=== PATIENT | female | born 1940 | race Caucasian/White ===

== ENCOUNTER 2022-12-02 17:00 | Emergency (ER) | payer MEDICARE, OTHER, SELFPAY ==
[2022-12-02] MEDS: 0.9% Normal Saline 1,000 ML 500 ML IV (17:00)
--- NOTE | 2022-12-02 17:02 | CT_ITS ---
INDICATION: ABD PAIN EXAMINATION: CT ABDOMEN AND PELVIS WITH CONTRAST - CT Abdomen And Pelvis W/ Contrast Injection TECHNIQUE: Helically acquired images were obtained of the abdomen and pelvis following IV contrast. A radiation dose optimization technique was used for this scan. IV Contrast dosage and agent: Oral contrast: None. COMPARISON: None. FINDINGS: LOWER CHEST: Lung bases are clear. No cardiomegaly or pericardial effusion. LIVER: Homogeneous. No focal mass. GALLBLADDER AND BILIARY TREE: Cholecystectomy.. No intra- or extrahepatic biliary ductal dilation. PANCREAS: No focal cystic or solid mass. SPLEEN: 1 cm splenic cyst, commonly sequela of prior infection or trauma. Normal size without focal cystic or solid mass. ADRENAL GLANDS: No nodules. KIDNEYS AND URETERS: Normal renal size and position. Small bilateral renal hypodensities which are too small to characterize, commonly cysts, no specific imaging follow-up required. No hydronephrosis. PERITONEUM: No ascites or free air. No other fluid collection. BOWEL: Small hiatal hernia. No other acute gastric finding. No small bowel distention. There is mild small bowel mesenteric stranding and minimal wall thickening of the left lower abdomen and upper pelvis. Appendix not seen, no right lower quadrant inflammation to suggest appendicitis. Scattered distal colonic diverticulosis with minimal fat stranding or volume averaging and motion along the sigmoid colon. LYMPH NODES: No enlarged mesenteric or retroperitoneal lymph nodes. VESSELS: Aortic atherosclerosis and tortuosity with minimal infrarenal ectasia to 2.0 cm.. URINARY BLADDER: Unremarkable. REPRODUCTIVE ORGANS: No pelvic masses. ABDOMINAL WALL: No discrete abdominal or pelvic wall hernia. BONES: No lytic or blastic abnormality. Mild to moderate right hip osteoarthritis. Prior left hip arthroplasty. CT/Abdomen/Pelvis W IV Cont ONLY IMPRESSION: 1. Distal colonic diverticulosis with minimal surrounding inflammatory stranding versus volume averaging at the sigmoid colon. No definitively inflamed diverticulum. Findings are nonspecific but an early acute uncomplicated diverticulitis is not excluded. 2. Mild left abdominal small bowel mesenteric stranding and minimal wall thickening, also nonspecific but can be seen with mild infectious enteritis. 3. Small hiatal hernia. 4. Aortic atherosclerosis with minimal infrarenal ectasia. Electronically Signed: Garrett Villa MD at 19:05 EST ,
[2022-12-02 17:19] VITALS: BP 143/96; PULSE 91; RESP 18; TEMP 36.6; O2SAT 99; BMI 78.6
[2022-12-02] MEDS: Morphine 4 MG/ML Syringe IV ×2 (17:19→18:55)
[2022-12-02] MEDS: Ondansetron 4 MG/2 ML Vial IV (17:19)
[2022-12-02 17:24] LABS: Absolute Lymphocyte Count 1.07 X10^3/uL (0.83-4.51); Absolute Neutrophil Count 7.3 X10^3/uL (2.0-7.7); Basophil# 0.05 X10^3/uL; Basophil% 0.6 % (0-1); Eosinophil# 0.01 X10^3/uL; Eosinophils% 0.1 % (0-5); Lymphocyte # 1.07 X10^3/ul (0.83-4.51); Lymphocyte % 12.2 % (19-41); Mean Corp Hgb Conc 32.5 g/dL (32-36); Mean Corpuscular Hgb 31.3 pg (27.0-32.0); Mean Corpuscular Volume 96.2 fL (81-99); Mean Platelet Vol. 9.6 fl (6.2-12.0); Monocyte# 0.34 X10^3/uL; Monocyte% 3.9 % (0-10); NRBC Flagged by Analyzer 0 % (0-5); Neutrophil # 7.26 X10^3/uL (2.7-7.7); Neutrophil % 82.7 % (47-70); Platelet Count 248 K/mm3 (150-450); RBC Distribution Width CV 12.1 % (11.6-14.6); RBC Distribution Width SD 42.5 fl (35.1-43.9); Red Blood Count 4.16 M/mm3 (4.2-5.4); White Blood Count 8.8 K/mm3 (4.4-11.0)
[2022-12-02 17:50] LABS: ALB/GLOB Ratio 1.4 RATIO (0.9-2.4); AST(SGOT) 18 U/L (15-37); Alanine Aminotransfer ALT/SGPT 28 U/L (13-56); Albumin, Serum 4.2 g/dL (3.2-5.0); Alkaline Phosphatase 81 U/L (45-117); Anion Gap 7 (5-15); BUN 12 mg/dL (7-18); BUN/Creat Ratio 20.8 RATIO (10-20); Calcium,Total 9.2 mg/dL (8.5-10.1); Chloride 106 mmol/L (98-107); Creatinine, Serum 0.58 mg/dL (0.55-1.02); EST Glomerular Filtration Rate 107 mL/min (>60); Est Glom Filt Rate - Afr Amer 129 mL/min (>60); Estimated Creatinine Clearance 37.45 ml/min; Globulin 2.9 g/dL (2.2-4.2); Glucose 139 mg/dL (74-106); Lipase 125 U/L (73-393); Protein, Total 7.1 g/dL (6.4-8.2); Sodium Level 138 mmol/L (136-145)
[2022-12-02 18:02] LABS: Lactic Acid 0.6 mmol/L (0.4-1.9)
[2022-12-02 18:04] LABS: Bacteria 0 SEEN /hpf (None Seen); Squamous Epithelial Cells - UA 0 SEEN /hpf (5-10)
[2022-12-02 18:05] LABS: Glucose, Dipstick Normal (Normal); Ketone-Dipstick 50 mg/dl (Negative); Leukocyte Esterase-Dipstick 100 /ul (Negative); Nitrite-Dipstick Negative (Negative); Occult Blood-Urine 150 /ul (Negative); Protein-Dipstick 30 mg/dl (Negative); Specific Gravity, Urine 1.015 (1.002-1.030); Urine Bilirubin Dipstick Negative (Negative); Urine Urobilinogen Normal (Normal); Urine pH 6.5 (5.0 - 8.0)
--- NOTE | 2022-12-02 18:05 | EX.ED.DYSGE1 ---
HPI <MIMA Reyes - Last Filed: 12/02/22 19:29> History of Present Illness Chief Complaint: Abd Pain Narrative Narrative: Patient is a 82-year-old female with history of chronic back pain, anxiety, depression, hypertension, multiple abdominal surgeries who presents the emergency department with 1 week of lower back pain, multiple days of left lower quadrant abdominal pain. Patient states that she had nausea, vomiting today, severe pain to her left lower quadrant. She is concerned that she may have diverticulitis or bowel obstruction. She also has been having a lot of lower back pain which she has been seen in urgent care and diagnosed with sciatica. Per the patient's friend who she lives with, patient does do a lot of lifting, and overdoes it many days of the week. She denies any fever or chills. Denies any bowel or bladder incontinence. PFSH <MIMA Reyes - Last Filed: 12/02/22 19:29> [facility] Home Medications acetaminophen 500 mg tablet 1,000 mg PO Q8H PAIN 12/02/22 [History Last Taken Unknown] aspirin 81 mg capsule 81 mg PO DAILY 12/02/22 [History Last Taken Unknown] celecoxib 100 mg capsule (Celebrex) 100 mg PO BID 12/02/22 [History Last Taken Unknown] cholecalciferol (vitamin D3) 125 mcg (5,000 unit) tablet (Vitamin D3) 9,000 unit PO DAILY 12/02/22 [History Last Taken Unknown] ciprofloxacin HCl 500 mg tablet 500 mg PO BID 10 days #19 TABLETS 12/02/22 [Rx Last Taken Unknown] clonazepam 0.5 mg tablet 0.5 mg PO QHS 12/02/22 [History Last Taken Unknown] cranberry 1,000 mg capsule mg PO DAILY 12/02/22 [History Last Taken Unknown] desloratadine 5 mg tablet (Clarinex) 5 mg PO DAILY 12/02/22 [History Last Taken Unknown] diltiazem HCl 180 mg capsule,extended release 24 hr, controlled 180 mg PO DAILY 12/02/22 [History Last Taken Unknown] famotidine 20 mg tablet (Pepcid) 20 mg PO BID 12/02/22 [History Last Taken Unknown] haloperidol 1 mg tablet 1 mg PO QHS 12/02/22 [History Last Taken Unknown] hydrocodone-acetaminophen 5-325mg 5mg-325mg 1 tab PO Q6H PRN PRN Pain 3 days #10 TABLETS 12/02/22 [Rx Last Taken Unknown] levocetirizine 5 mg tablet 5 mg PO QHS 12/02/22 [History Last Taken Unknown] losartan 100 mg tablet 100 mg PO DAILY 12/02/22 [History Last Taken Unknown] metronidazole 500 mg tablet 500 mg PO TID #29 tabs 12/02/22 [Rx Last Taken Unknown] ondansetron 4 mg disintegrating tablet 4 mg PO Q8H PRN PRN Nausea #10 tabs 12/02/22 [Rx Last Taken Unknown] pantoprazole 40 mg tablet,delayed release 40 mg PO DAILY 12/02/22 [History Last Taken Unknown] tizanidine 2 mg tablet 2 mg PO Q8H PRN SCIATICA PAIN 12/02/22 [History Last Taken Unknown] venlafaxine 37.5 mg tablet 37.5 mg PO BID 12/02/22 [History Last Taken Unknown] vitamin B12 500 mcg-folic acid 400 mcg tablet 1 tab PO DAILY 12/02/22 [History Last Taken Unknown] Allergy/AdvReac Type Severity Reaction Status Date / Time baclofen Allergy PT UNSURE Verified 12/02/22 17:14 OF REACTION Penicillins [PCN] Allergy PT UNSURE Verified 12/02/22 17:14 OF REACTION Sulfa (Sulfonamide Allergy PT UNSURE Verified 12/02/22 17:14 Antibiotics) OF REACTION Surgical History (Updated 12/02/22 @ 17:16 by Mana Aponte) H/O abdominal surgery H/O: hysterectomy History of hip replacement History of tonsillectomy Hx of appendectomy Social History Smoking Status: Former smoker ROS <MIMA Reyes - Last Filed: 12/02/22 19:29> [facility] ROS Narrative Constitutional: Negative for fever, chills, weight loss, weakness Eyes: Negative for vision loss, vision change, double vision ENT: Negative for any sore throat, ear pain, congestion Cardiovascular: Negative for any chest pain, tightness, palpitations Respiratory: Negative for any cough, sputum production, hemoptysis, dyspnea, dyspnea on exertion, orthopnea Gastrointestinal: Negative for any diarrhea, constipation, blood in stool, blood in vomit. Positive for abdominal pain, nausea and vomiting : Negative for any urinary frequency, dysuria, retention, blood in urine Muscle skeletal: Negative for any muscle joint pain, stiffness, myalgias, arthralgias, neck pain. Positive for lower back pain Neurological: Negative for any headache, syncope, numbness or tingling, dizziness Skin: Negative for any rashes, lumps, itching, abrasions, lacerations Psychiatric: Negative for any depression, anxiety, stress, suicidal ideation, homicidal ideation Hematologic: Negative for any easy bruising, excessive bruising, easy bleeding Allergies: Negative for any eczema, hives, rash EXAM <MIMA Reyes - Last Filed: 12/02/22 19:29> Physical Exam Narrative Exam Narrative: Vital signs reviewed. HEET: Head normocephalic atraumatic, TMs clear bilaterally. Posterior pharynx is clear, moist mucous membranes. Nares clear bilaterally. Neck: Supple with no lymphadenopathy or tenderness. No signs of meningismus, negative jolt sign. Cardiac: Regular rate and rhythm no murmurs gallops or rubs, equal peripheral pulses bilaterally. Respiratory: Lungs clear to auscultation bilaterally. No chest tenderness. Abdomen: Soft, nondistended. No abdominal bruit or pulsatile masses. No hepatosplenomegaly. Patient did have some tenderness to the left lower quadrant of her abdomen. Extremities: No peripheral edema, no signs of gross trauma or deformity. Active full range of motion of all extremities. Neuro: Cranial nerves II through XII intact, no focal neurological deficits. Skin: Clean dry and intact with no rash, purpura, petechiae, vesicles or pustules. Backs/flank: No CVA tenderness, no midline spinal tenderness, no deformity. Patient has some discomfort to the left side of her lumbar spine. No midline spinal tenderness. No step-off deformity. Psych: Normal mood and affect. No SI, HI or acute psychosis. Const Vital Signs: 12/02/22 17:19 12/02/22 19:04 Temperature 97.9 F Temperature Source Oral Pulse Rate 91 87 Respiratory Rate 18 18 Blood Pressure 143/96 H 147/89 H Blood Pressure Mean 111 108 Pulse Ox 99 99 Oxygen Delivery Method Room Air Room Air Positive well nourished and well developed General Appearance ED: well developed <Dr. Ki Betancourt DO - Last Filed: 12/02/22 21:59> Physical Exam Const Vital Signs: 12/02/22 17:19 12/02/22 19:04 Temperature 97.9 F Temperature Source Oral Pulse Rate 91 87 Respiratory Rate 18 18 Blood Pressure 143/96 H 147/89 H Blood Pressure Mean 111 108 Pulse Ox 99 99 Oxygen Delivery Method Room Air Room Air [facility] <Scott StatonMIMA - Last Filed: 12/02/22 19:29> [facility] Lab Data Attestation: I reviewed the patient's lab results. Labs: Laboratory Results - last 24 hr 12/02/22 12/02/22 12/02/22 16:58 16:58 16:58 WBC 8.8 RBC 4.16 L Hgb 13.0 Hct 40.0 MCV 96.2 MCH 31.3 MCHC 32.5 RDW Std Deviation 42.5 RDW Coeff of Kelvin 12.1 Plt Count 248 MPV 9.6 Immature Gran % (Auto) 0.500 Neut % (Auto) 82.7 H Lymph % (Auto) 12.2 L [place] % (Auto) 3.9 Eos % (Auto) 0.1 Baso % (Auto) 0.6 Absolute Neuts (auto) 7.3 Absolute Lymphs (auto) 1.07 Nucleated RBC % 0 Sodium 138 Potassium 4.0 Chloride 106 Carbon Dioxide 25.0 Anion Gap 7 BUN 12 Creatinine 0.58 Estim Creat Clear Calc 37.45 Est GFR (MDRD) Af Amer 129 Est GFR (MDRD) Non-Af 107 BUN/Creatinine Ratio 20.8 H Glucose 139 H Lactic Acid 0.6 Calcium 9.2 Total Bilirubin 0.60 AST 18 ALT 28 Alkaline Phosphatase 81 Total Protein 7.1 Albumin 4.2 Globulin 2.9 Albumin/Globulin Ratio 1.4 Lipase 125 Urine Color Urine Clarity Urine pH Ur Specific [place] Urine Protein Urine Glucose (UA) Urine Ketones Urine Occult Blood Urine Nitrite Urine Bilirubin Urine Urobilinogen Ur Leukocyte Esterase Urine RBC Urine WBC Ur Squamous Epith Cells Urine Bacteria Urine Mucus 12/02/22 17:09 WBC RBC Hgb Hct MCV MCH MCHC RDW Std Deviation RDW Coeff of Kelvin Plt Count MPV Immature Gran % (Auto) Neut % (Auto) Lymph % (Auto) [place] % (Auto) Eos % (Auto) Baso % (Auto) Absolute Neuts (auto) Absolute Lymphs (auto) Nucleated RBC % Sodium Potassium Chloride Carbon Dioxide Anion Gap BUN Creatinine Estim Creat Clear Calc Est GFR (MDRD) Af Amer Est GFR (MDRD) Non-Af BUN/Creatinine Ratio Glucose Lactic Acid Calcium Total Bilirubin AST ALT Alkaline Phosphatase Total Protein Albumin Globulin Albumin/Globulin Ratio Lipase Urine Color Yellow Urine Clarity Clear Urine pH 6.5 Ur Specific [place] 1.015 Urine Protein 30 H Urine Glucose (UA) Normal Urine Ketones 50 H Urine Occult Blood 150 H Urine Nitrite Negative Urine Bilirubin Negative Urine Urobilinogen Normal Ur Leukocyte Esterase 100 H Urine RBC 0-5 SEEN Urine WBC 5-10 SEEN Ur Squamous Epith Cells 0 SEEN Urine Bacteria 0 SEEN Urine Mucus RARE Radiography Diagnostic Testing: Clinical Impression(s) from Imaging Studies Abdomen/Pelvis CT 12/02/22 17:02 IMPRESSION: 1. Distal colonic diverticulosis with minimal surrounding inflammatory stranding versus volume averaging at the sigmoid colon. No definitively inflamed diverticulum. Findings are nonspecific but an early acute uncomplicated diverticulitis is not excluded. 2. Mild left abdominal small bowel mesenteric stranding and minimal wall thickening, also nonspecific but can be seen with mild infectious enteritis. 3. Small hiatal hernia. 4. Aortic atherosclerosis with minimal infrarenal ectasia. Electronically Signed: Garrett Villa MD at 19:05 EST Reading Location ID and State: [facility] / [place] Tel , Service support , Treatment and Re-Evaluation Narrative: All radiologic examinations were read, reviewed by the emergency department attending. From these reads, a plan of care will be put in place. Patient arrives in moderate distress secondary to left lower abdominal pain, back pain has been ongoing for multiple days. Patient did receive a full abdominal work-up, this will also look at the lumbar spine. CT of the abdomen is concerning for any small bowel obstruction, diverticulitis. Patient's laboratory values show a normal CBC, patient's chemistries were unremarkable, lipase was negative, lactic acid was negative. Patient urinalysis was negative for any infection. Patient CT scan of the abdomen pelvis showed distal colonic diverticulosis with minimal surrounding inflammatory stranding versus volume averaging at the sigmoid colon. No definitively inflamed diverticulum. Findings are nonspecific but an early acute uncomplicated diverticulitis is not excluded. This is consistent with the patient's symptoms as well as the patient's history. Mild left abdominal small bowel mesenteric stranding and minimal wall thickening, also nonspecific can be seen with mild infectious enteritis. Patient will be treated with Cipro, Flagyl secondary to allergy to penicillin. She will be given [place] for home. She was given IV fluids here, morphine 4 mg x 2 as well as IV Zofran. On reassessment, the patient is feeling much better. She feels stable for discharge. Her roommate was also in the room, she was given instructions, and given return precautions. At this time, I believe the patient is stable for discharge, she was given return precautions. <Dr. Ki Betancourt, DO - Last Filed: 12/02/22 21:59> [facility] Lab Data Lab results narrative: This patient was seen with a PA/FLOOR CLEANER Individually assessed they patient including history and physical. I have reviewed everything on the chart that is available and agree with the documentation provided by the PA/FLOOR CLEANER including discussion about the assessment, treatment plan, discussion, and return precautions. Patient arrives in moderate distress secondary to left lower abdominal pain, back pain has been ongoing for multiple days. Patient did receive a full abdominal work-up, this will also look at the lumbar spine. CT of the abdomen is concerning for any small bowel obstruction, diverticulitis. Patient's laboratory values show a normal CBC, patient's chemistries were unremarkable, lipase was negative, lactic acid was negative. Patient urinalysis was negative for any infection. Patient CT scan of the abdomen pelvis showed distal colonic diverticulosis with minimal surrounding inflammatory stranding versus volume averaging at the sigmoid colon. No definitively inflamed diverticulum. Findings are nonspecific but an early acute uncomplicated diverticulitis is not excluded. This is consistent with the patient's symptoms as well as the patient's history. Mild left abdominal small bowel mesenteric stranding and minimal wall thickening, also nonspecific can be seen with mild infectious enteritis. Patient will be treated with Cipro, Flagyl secondary to allergy to penicillin. She will be given [place] for home. She was given IV fluids here, morphine 4 mg x 2 as well as IV Zofran. On reassessment, the patient is feeling much better. She feels stable for discharge. Her roommate was also in the room, she was given instructions, and given return precautions. At this time, I believe the patient is stable for discharge, she was given return precautions. Labs: Laboratory Results - last 24 hr 12/02/22 12/02/2223 16:58 16:58 16:58 WBC 8.8 RBC 4.16 L Hgb 13.0 Hct 40.0 MCV 96.2 MCH 31.3 MCHC 32.5 RDW Std Deviation 42.5 RDW Coeff of Kelvin 12.1 Plt Count 248 MPV 9.6 Immature Gran % (Auto) 0.500 Neut % (Auto) 82.7 H Lymph % (Auto) 12.2 L [place] % (Auto) 3.9 Eos % (Auto) 0.1 Baso % (Auto) 0.6 Absolute Neuts (auto) 7.3 Absolute Lymphs (auto) 1.07 Nucleated RBC % 0 Sodium 138 Potassium 4.0 Chloride 106 Carbon Dioxide 25.0 Anion Gap 7 BUN 12 Creatinine 0.58 Estim Creat Clear Calc 37.45 Est GFR (MDRD) Af Amer 129 Est GFR (MDRD) Non-Af 107 BUN/Creatinine Ratio 20.8 H Glucose 139 H Lactic Acid 0.6 Calcium 9.2 Total Bilirubin 0.60 AST 18 ALT 28 Alkaline Phosphatase 81 Total Protein 7.1 Albumin 4.2 Globulin 2.9 Albumin/Globulin Ratio 1.4 Lipase 125 Urine Color Urine Clarity Urine pH Ur Specific [place] Urine Protein Urine Glucose (UA) Urine Ketones Urine Occult Blood Urine Nitrite Urine Bilirubin Urine Urobilinogen Ur Leukocyte Esterase Urine RBC Urine WBC Ur Squamous Epith Cells Urine Bacteria Urine Mucus 12/02/22 17:09 WBC RBC Hgb Hct MCV MCH MCHC RDW Std Deviation RDW Coeff of Kelvin Plt Count MPV Immature Gran % (Auto) Neut % (Auto) Lymph % (Auto) [place] % (Auto) Eos % (Auto) Baso % (Auto) Absolute Neuts (auto) Absolute Lymphs (auto) Nucleated RBC % Sodium Potassium Chloride Carbon Dioxide Anion Gap BUN Creatinine Estim Creat Clear Calc Est GFR (MDRD) Af Amer Est GFR (MDRD) Non-Af BUN/Creatinine Ratio Glucose Lactic Acid Calcium Total Bilirubin AST ALT Alkaline Phosphatase Total Protein Albumin Globulin Albumin/Globulin Ratio Lipase Urine Color Yellow Urine Clarity Clear Urine pH 6.5 Ur Specific [place] 1.015 Urine Protein 30 H Urine Glucose (UA) Normal Urine Ketones 50 H Urine Occult Blood 150 H Urine Nitrite Negative Urine Bilirubin Negative Urine Urobilinogen Normal Ur Leukocyte Esterase 100 H Urine RBC 0-5 SEEN Urine WBC 5-10 SEEN Ur Squamous Epith Cells 0 SEEN Urine Bacteria 0 SEEN Urine Mucus RARE Radiography Diagnostic Testing: Clinical Impression(s) from Imaging Studies Abdomen/Pelvis CT 12/02/22 17:02 IMPRESSION: 1. Distal colonic diverticulosis with minimal surrounding inflammatory stranding versus volume averaging at the sigmoid colon. No definitively inflamed diverticulum. Findings are nonspecific but an early acute uncomplicated diverticulitis is not excluded. 2. Mild left abdominal small bowel mesenteric stranding and minimal wall thickening, also nonspecific but can be seen with mild infectious enteritis. 3. Small hiatal hernia. 4. Aortic atherosclerosis with minimal infrarenal ectasia. Electronically Signed: Garrett Villa MD at 19:05 EST , Treatment and Re-Evaluation Narrative: All radiologic examinations were read, reviewed by the emergency department attending. From these reads, a plan of care will be put in place. Discharge Plan Triage Chief Complaint: Abd Pain ED Midlevel Provider: Scott Staton ED Provider: Ki Betancourt Dx/Rx/DC Orders Clinical Impression: Lumbar strain, Diverticulitis Instructions: Understanding Lumbosacral Strain, ED Diverticulitis Prescriptions: New ciprofloxacin HCl 500 mg tablet 500 mg PO BID 10 Days Qty: 19 0RF metronidazole 500 mg tablet 500 mg PO TID Qty: 29 0RF hydrocodone-acetaminophen 5-325 mg tablet 1 tab PO Q6H PRN PRN (Reason: Pain) 3 Days Qty: 10 0RF ondansetron 4 mg tablet,disintegrating 4 mg PO Q8H PRN PRN (Reason: Nausea) Qty: 10 0RF No Action tizanidine 2 mg Tablet 2 mg PO Q8H PRN (Reason: SCIATICA PAIN) clonazepam 0.5 mg Tablet 0.5 mg PO QHS Rx Instructions: administer 30 minutes before bedtime haloperidol 1 mg Tablet 1 mg PO QHS acetaminophen 500 mg Tablet 1,000 mg PO Q8H famotidine [Pepcid] 20 mg Tablet 20 mg PO BID desloratadine [Clarinex] 5 mg Tablet 5 mg PO DAILY pantoprazole 40 mg Tablet,Delayed Release (Dr/Ec) 40 mg PO DAILY venlafaxine 37.5 mg Tablet 37.5 mg PO BID celecoxib [Celebrex] 100 mg Capsule 100 mg PO BID losartan 100 mg Tablet 100 mg PO DAILY diltiazem HCl 180 mg Capsule,Ext.Rel 24h Degradable 180 mg PO DAILY cranberry 1,000 mg Capsule PO DAILY Rx Instructions: administer with a meal levocetirizine 5 mg Tablet 5 mg PO QHS cholecalciferol (vitamin D3) [Vitamin D3] 125 mcg (5,000 unit) Tablet 9,000 unit PO DAILY vitamin [id number] acid 500-400 mcg Tablet 1 tab PO DAILY Rx Instructions: administer with a meal aspirin 81 mg Capsule 81 mg PO DAILY Primary Care Provider: MARICHUY TALAMANTES Referrals: MARICHUY TALAMANTES DO [Primary Care Provider] - Activity Restrictions/Additional Instructions: Take antibiotics until finished. You need to take pain medicine at nighttime as it can make you sleepy. Follow-up with your PCP. Return for worsening pain, fever or chills. Disposition Disposition: Home, Self Care Discharge Date/Time: 12/02/22 19:50
[2022-12-02 18:11] LABS: Color, Urine Yellow (Yellow); Urine Clarity Clear (Clear)
[2022-12-02 18:30] LABS: Mucous, Urine RARE /hpf (<or=2+); Red Blood Cells-Urine 0-5 SEEN /hpf (0-5); White Blood Cells 5-10 SEEN /hpf (0-5)
[2022-12-02 19:04] VITALS: BP 147/89; PULSE 87; RESP 18; O2SAT 99
[2022-12-02] MEDS: metroNIDAZOLE 500 MG Tablet PO (19:34)
[2022-12-02] MEDS: Ciprofloxacin 500 MG Tablet PO (19:34)
== END 2022-12-02 19:50 | disposition home or self-care (01) ==
PROVIDERS: Emergency Provider Student in an Organized Health Care Education/Training Program; PCP Family Medicine; Visit Provider Student in an Organized Health Care Education/Training Program
DX: S39.012A Strain of muscle, fascia and tendon of lower back, initial encounter (principal); K57.92 Diverticulitis of intestine, part unspecified, without perforation or abscess without bleeding; F41.9 Anxiety disorder, unspecified; I10 Essential (primary) hypertension; M54.30 Sciatica, unspecified side; Z87.891 Personal history of nicotine dependence; Z79.82 Long term (current) use of aspirin; X50.0XXA Overexertion from strenuous movement or load, initial encounter
CPT/HCPCS: 74177; 80053; 81001; 83605; 83690; 85025; 96361; 96374; 96375; 99284; 99285; J7030; J7040; Q9967; A4216; J2405